=== PATIENT | male | born 1950 | race Caucasian/White ===

== ENCOUNTER 2018-01-17 10:33 | Emergency (ER) | payer OTHER ==
--- NOTE | 2018-01-17 10:44 | EDPHY ---
H & P Stated Complaint: c/o RLQ pain radiating into R testicle starting this am, intermittent nause Time Seen by Provider: 01/17/18 10:43 - Medical/Surgical History Hx Asthma: No Hx Chronic Respiratory Disease: No Hx Diabetes: No Hx Cardiac Disease: Yes Hx Renal Disease: No Hx Cirrhosis: No Hx Alcoholism: No Hx HIV/AIDS: No Hx Splenectomy or Spleen Trauma: No Other PMH: hyperlipidemia, prostate surg - Social History Smoking Status: Never smoked Constitutional: Initial Vital Signs Heart Rate 56 L 01/17/18 10:37 Respiratory Rate 18 01/17/18 10:37 Blood Pressure 137/76 H 01/17/18 10:37 O2 Sat (%) 100 01/17/18 10:37 O2 Delivery Mode Room Air Allergies/Adverse Reactions: No Known Allergies Allergy (Verified 01/17/18 10:40) Home Medications: Medication Instructions Recorded Lipitor 01/24/11 Tamsulosin HCl [Flomax 0.4 MG (*)] 0.4 mg PO DAILY #10 cap 01/17/18 oxyCODONE IR [Oxycodone Ir (*)] 5 - 10 mg PO Q6 PRN #20 tab 01/17/18 Medical Decision Making - Diagnostics Imaging Results: Imaging Impressions Testicular Ultrasound 01/17/18 10:49 Impression: 1. Area of pain corresponds to the right hemiscrotum near the spermatic cord without definite abnormality. 2. Trace left hydrocele. Findings and recommendations discussed with Gamal Leonard MD at 1141 hour, . Abdomen/Pelvis CT 01/17/18 11:42 Impression: 1. Obstructing 3.0 mm right UVJ calculus with mild hydroureteronephrosis. 2. Submucosal cystic changes in the bladder, either representing bladder diverticula or a process such as cystitis cystica. Mild thickening of the wall could be related to chronic outlet obstruction. Could consider outpatient urologic consultation. 3. Prostatomegaly. Findings and recommendations discussed with Gamal Leonard MD at 1202 hour, . Imaging: Discussed imaging studies w/ engineering inspection assistant Radiologist ED Course/Re-evaluation: CHIEF COMPLAINT: Lower abdomen pain, right testicle pain HISTORY OF PRESENT ILLNESS: The patient is a 67 y/o male with a history of laser prostate surgery arriving with his complaining of right testicle pain upon waking this morning. After a bowel movement later in the morning he developed associated with RLQ abdominal pain and intermittent nausea. He denies flank pain, fever, vomiting, diarrhea, urinary symptoms, recent illness, or recent trauma. No history of other abdominal surgeries or hernias. He notes he has been doing a lot of manual labor recently while remodeling his kitchen. REVIEW OF SYSTEMS: A comprehensive 10 system review of systems is otherwise negative aside from elements mentioned in the history of present illness and medical decision making. PHYSICAL EXAM: HR, BP, O2 Sat, RR. Temp noted General Appearance: Alert, well hydrated, appropriate, and non-toxic appearing. Head: Atraumatic without scalp tenderness or obvious injury Eyes: Pupils equal, round, reactive to light and accommodation, EOMI, no trauma , no injection. Nose: Atraumatic, no rhinorrhea, clear. Throat: Mucus membranes moist. Neck: Supple. Respiratory: No retractions, no distress, no wheezes, and no accessory muscle use. Lungs are clear to auscultation bilaterally. Cardiovascular: Regular rate and rhythm, no murmurs, rubs, or gallops. Good capillary refill all extremities. Gastrointestinal: Abdomen is soft, minimal RLQ tenderness on deep palpation, non-distended, no masses, no rebound, no guarding, no peritoneal signs. : Tenderness along lateral wall of right testicle. No hernia. Musculoskeletal: Normal active ROM of all extremities, atraumatic. Neurological: Alert, appropriate, and interactive. Nonfocal. Skin: No rashes, good turgor, no nodules on palpation. Past medical history: Hypercholesterolemia - Lipitor; rotator cuff injury - Celebrex Past surgical history: Laser prostate surgery Family history: Noncontributory Social history: at bedside. Employed. Lives in [place]. DIAGNOSTICS/PROCEDURES/CRITICAL CARE TIME: Testicular US: unremarkable. Abdominal CT: 3mm ureteral stone, right UVJ DIFFERENTIAL DIAGNOSIS: The differential diagnosis for the patient's testicular pain included but was not limited to epididymitis, orchitis, referred pain from kidney stone, inguinal hernia, and torsion of the testicle. MEDICAL DECISION MAKING: This is a healthy 67 y/o male with a history of laser prostate surgery who presents with a few-hour history of right testicle pain upon waking this morning and now associated with RLQ pain and nausea. He has minimal RLQ tenderness on deep palpation and right lateral testicular tenderness. Suspect epididymitis. Plan for testicular US, UA with GC/chlamydia probe. No additional labs at this time. Will consider more labs and CT imaging if US is normal. 800mg PO ibuprofen administered for pain. UA shows elevated RBCs, pain could be related to kidney stone. US is unremarkable. Abdominal CT ordered. CT shows right 3mm ureteral stone. Reassessed patient and discussed findings. He will be discharged with standard kidney stone care and urology follow up instructions. Dose of Flomax provided here as well as scripts for Stanley and Flomax. Return precautions discussed. He is comfortable with this plan. - Data Points Laboratory Results: 01/17/18 01/17/18 10:55 10:55 Urine Color YELLOW Urine Appearance HAZY Urine pH 5.0 (5.0-7.5) Ur Specific Woody 1.021 (1.002-1.030) Urine Protein 1+ H (NEGATIVE) Urine Ketones NEGATIVE (NEGATIVE) Urine Blood 3+ H (NEGATIVE) Urine Nitrate NEGATIVE (NEGATIVE) Urine Bilirubin NEGATIVE (NEGATIVE) Urine Urobilinogen 2.0 EU H EU (0.2-1.0) Ur Leukocyte Esterase NEGATIVE (NEGATIVE) Urine RBC 50-182 /hpf H /hpf (0-3) Urine WBC 5-10 /hpf H /hpf (0-3) Ur Epithelial Cells NONE SEEN /lpf /lpf (NONE-1+) Urine Mucus TRACE /lpf /lpf (NONE-1+) Urine Glucose NEGATIVE (NEGATIVE) C.trachomatis RNA (TMA) Pending N.gonorrhoeae RNA (TMA) Pending Medications Given: Discontinued Medications Ibuprofen (Motrin) 800 mg PO EDNOW ONE Stop: 01/17/18 10:51 Last Admin: 01/17/18 10:56 Dose: 800 mg Departure - Departure Disposition: Home, Routine, Self-Care Clinical Impression: Ureteral stone Condition: Good Instructions: Hydrocodone/Acetaminophen (By mouth), Tamsulosin (By mouth), Kidney Stones (ED) Additional Instructions: 1. Take Flomax as prescribed while symptoms are present. 2. Take 800mg ibuprofen every 8 hours for pain and inflammation while symptoms are present. 3. Use OxyIR as prescribed when needed for severe pain. This medication can make you drowsy and constipated. Do not drive prior to using. 4. Strain urine as directed. 5. Follow up with urologist next week. I recommend calling today to schedule this appointment. 6. Return for severe pain, fever, inability to urinate, or other worsening of condition. Referrals: Leo Wen MD [Primary Care Provider] - As per Instructions Yoni Kinsey MD [Medical Doctor] - As per Instructions Prescriptions: oxyCODONE IR [Oxycodone Ir (*)] 5 - 10 mg PO Q6 PRN #20 tab PRN Reason: Pain, Severe Tamsulosin HCl [Flomax 0.4 MG (*)] 0.4 mg PO DAILY #10 cap Report Scribed for: Gamal Leonard Report Scribed by: Antoinette Reyna Date of Report: 01/17/18 Time of Report: 10:44
[2018-01-17] MEDS ORDERED: IBUPROFEN 800 MG TAB PO ONE (10:50)
[2018-01-17] MEDS ORDERED: TAMSULOSIN HCL 0.4 MG CAP PO ONE (12:02)
[2018-01-17 12:20] VITALS: BP 165/84
[2018-01-21 12:19] LABS: GC AMPLIFICATION GENPROBE NEGATIVE (NEGATIVE)
== END 2018-01-17 12:25 | disposition home or self-care (01) ==
DX: N20.1 Calculus of ureter (principal)

== ENCOUNTER → 2018-02-16 | Outpatient (CLI) | payer OTHER | LOC: FIMAGING 08:03 | PROVIDERS: ATTEND Orthopaedic Surgery | DX: M23.232 Derangement of other medial meniscus due to old tear or injury, left knee (principal); M76.892 Other specified enthesopathies of left lower limb, excluding foot ==